=== PATIENT | male | born 1960 | race Caucasian/White ===

== ENCOUNTER 2020-07-16 19:34 | Emergency (ER) | payer OTHER ==
[~2020-07-16] VITALS: Ht 172.7 cm; Wt 110.0 kg
--- NOTE | 2020-07-16 20:09 | PHYS DOC ---
General Adult EDM: Chief Complaint: HAND PROBLEM HPI: HPI: Patient is a 60 year old male who presents with laceration of right hand. The patient was breaking branches for fire when a branch punctured his right hand in between the first and second digits. He denies any trauma to the joints or pain more proximally. He does not think there is a foreign body contained within the laceration. He denies being on blood thinners. He states his last tetanus shot was in 2017. Review of Systems: Review of Systems: Constitutional: Denies fever or chills Eyes: Denies redness or eye pain HENT: Denies nasal congestion or sore throat Respiratory: Denies cough or shortness of breath Cardiovascular: Denies chest pain or palpitations GI: Denies abdominal pain, nausea, or vomiting : Denies dysuria or hematuria Musculoskeletal: Denies back pain or joint pain Integument: Denies rash notes a laceration on right hand between first and second digits Neurologic: Denies headache, focal weakness or sensory changes Complete systems were reviewed and found to be within normal limits, except as documented in this note. Heart Score: Risk Factors: Risk Factors: DM, Current or recent (<one month) smoker, HTN, HLP, family history of CAD, obesity. Risk Scores: Score 0 - 3: 2.5% MACE over next 6 weeks - Discharge Home Score 4 - 6: 20.3% MACE over next 6 weeks - Admit for Clinical Observation Score 7 - 10: 72.7% MACE over next 6 weeks - Early Invasive Strategies Current Medications: Current Medications Medications (Trade) Dose Ordered Sig/Rosita Start Time Stop Time Status Last Admin Dose Admin Lidocaine/ Epinephrine (LIDOCAINE 2%-EPI 1:100,000 multi-dose) 20 ml 1X ONCE 07/16/20 20:15 07/16/20 20:16 Neomycin/ Polymyxin/ Bacitracin (Triple Antibiotic Ointment) 1 pkt 1X ONCE 07/16/20 20:15 07/16/20 20:16 Allergies: Allergies: Allergies Coded Allergies Type Severity Reaction Last Updated Verified Penicillins Allergy Intermediate SWELLING 07/16/20 Yes metformin Allergy Intermediate RASH 07/16/20 Yes Physical Exam: PE: Constitutional: Well developed, well nourished, no acute distress, non-toxic appearance HENT: Normocephalic, atraumatic Eyes: PERRL, EOMI, conjunctiva normal, no discharge Neck: Normal range of motion, no tenderness, supple Lungs & Thorax: No respiratory distress, equal chest rise and fall Abdomen: Soft, no tenderness Skin: Warm, dry, no erythema, no rash Back: No tenderness, no CVA tenderness Extremities: ROM intact, no edema. Small 1 cm laceration noted in webbing between first and second digits of right hand. No foreign body appreciated. Neurologic: Alert and oriented X 3, normal motor function, normal sensory function, no focal deficits noted Psychologic: Affect normal, judgment normal EKG: EKG: [] Radiology/Procedures: Radiology/Procedures: [] Course & Med Decision Making: Course & Med Decision Making Pertinent Imaging studies reviewed. (See chart for details) Patient is a 60-year-old male who presented with laceration on right hand. He was breaking branches to use for his smoker when one of the pieces pierced his right hand resulting in a puncture wound in the webbing between the first and second digits. The laceration is around 1 cm in length. An x-ray was obtained to make sure no foreign body could be visualized, and no foreign body was visualized on physical exam before the repair. Three 4-0 nylon suture were placed successfully reapproximating the laceration. The incision was dressed and the patient was instructed to keep the area clean and return to primary physician for suture removal in 7 to 10 days. Patient stable for discharge with outpatient follow-up with PCP. Discussed findings and plan with patient, who acknowledges understanding and agreement. Smita Disclaimer: Smita Disclaimer: This electronic medical record was generated, in whole or in part, using a voice recognition dictation system. Laceration/Wound Repair Laceration/Wound Repair : Wound Location: upper extremity Wound's Depth, Shape: superficial, linear Progress Verbal consent obtained. Time out performed. Hand hygiene utilized. Wound cleaned with ChloraPrep. Anesthesia obtained via a 25-gauge hypodermic needle with (5) mL's of lidocaine 2% with epinephrine. Copious irrigation performed. Wound well approximated with 3 4-0 nylon sutures. Patient tolerated procedure well and without difficulty. Empiric antibiotic ointment applied prior to sterile dressing. Departure Departure Impression: Primary Impression: Laceration of hand Qualified Codes: S61.411A - Laceration without foreign body of right hand, initial encounter Disposition: 01 DC HOME SELF CARE/HOMELESS Condition: STABLE Patient Instructions: Laceration Care, Adult, [id number] Additional Instructions: Do not soak your wound. You may shower. Clean wound daily with soap and water. Change dressing 2 times daily. Use over the counter antibiotic ointment with each dressing change. Sutures need to be removed in 7-10 days. Present to your family doctor or local urgent care for removal. You may also present to the ED but it will be an additional visit/charge. WAQAR ZABALA DO Jul 16, 2020 20:09
[2020-07-16] MEDS ORDERED: LIDOCAINE 2%/EPI 1:100,000 20 ML VIAL. INJ ONE (20:15)
[2020-07-16] MEDS ORDERED: NEOMY/BACITR/POLYMYXIN OINT PACKET. TP ONE (20:15)
--- NOTE | 2020-07-16 21:40 | RAD ---
Exam: Right hand 3 views INDICATION: Puncture wound first and second TECHNIQUE: Frontal, lateral and oblique views of the right hand Comparisons: None FINDINGS: Bone mineralization is normal. No acute or healed fractures. There is mild soft tissues irregularity at the thenar compartment. No radiopaque foreign body identified. IMPRESSION: Irregularity at the thenar soft tissues without radiopaque foreign body or underlying osseous abnorma lity identified. Electronically signed by: Martha Doe MD (07/16/2020 9:38 PM) DENISE
[2020-07-16 21:41] VITALS: BP 138/81
== END 2020-07-16 21:40 | disposition home or self-care (01) ==
LOC: ER 19:34
DX: S61.411A Laceration without foreign body of right hand, initial encounter (principal); Z88.0 Allergy status to penicillin; Z88.8 Allergy status to other drugs, medicaments and biological substances; X58.XXXA Exposure to other specified factors, initial encounter; Y93.89 Activity, other specified; Y92.89 Other specified places as the place of occurrence of the external cause; Y99.8 Other external cause status
CPT/HCPCS: 12001; 73130; 99283; J3490